=== PATIENT | female | born 1980 | race Caucasian/White ===

== ENCOUNTER 2017-08-24 14:32 | Emergency (ER) | payer SELFPAY ==
[2017-08-24 14:59] LABS: Base Excess-Venous 1.6 mmol/L (0 (+/- 2.5)); Bicarbonate (HCO3v) 26.1 mmol/L (1.0-85.0); CO2 Tension (PvCO2) 39.6 mmHg (41.0-51.0); Hemoglobin - Calc 13.8 g/dL (12.0-18.0); O2 Tension (PvO2) 70.6 mmHg (35.0-45.0); T. Carbon Dioxide 27.3 mmol/L (1.0-85.0); pH (Venous) 7.427 (7.35-7.45); vO2 Saturation-calc 94.4 % (94-98)
[2017-08-24 15:00] LABS: #Eosinphils 0.1 thou/uL (0.0-0.7); #Lymphocytes 1.9 thou/uL (1.20-3.40); #Monocytes 0.5 thou/uL (0.11-0.59); #Neutrophils 5.5 thou/uL (1.40-6.50); %Basophils 0.6 % (0.0-1.0); %Eosinophils 1.1 % (0.0-10.0); %Lymphocytes 23.1 % (21.0-51.0); %Monocytes 6.4 % (0.0-10.0); %Neutrophils 68.8 % (42.0-75.0); Hemoglobin 14.3 g/dL (12.0-16.0); Mean Corpuscular HGB CONC 34.4 g/dL (32.0-36.0); Mean Corpuscular Hemoglobin 30.8 pg (27.0-31.0); Mean Corpuscular Volume 89.6 fL (78.0-98.0); Mean Platelet Volume 8.9 fL (7.4-10.4); Platelet Count 192 thou/uL (130-400); RBC Distribution Width 12.5 % (11.5-14.5); Red Blood Cell (RBC) Count 4.66 mill/uL (4.20-5.40)
[2017-08-24 15:19] LABS: CKMB 2.4 ng/mL (0-6.6); Troponin I Less than 0.010 ng/mL (< 0.028)
[2017-08-24 15:25] LABS: ALT (SGPT) 32 U/L (8-55); AST (SGOT) 24 U/L (5-34); Acetaminophen Less than 6.0 mcg/mL (10.0-30.0); Alcohol Less than 10 mg/dL (Less than 10); Alkaline Phosphatase 100 U/L (40-150); Anion Gap 15 mmol/L (10-20); BUN (Urea Nitrogen) 13 mg/dL (7.0-18.7); Bilirubin, Total 0.2 mg/dL (0.2-1.2); CK (CPK) 150 U/L (29-168); Calc. Creatinine Clearance 0 mL/min (70-130); Carbon Dioxide 24 mmol/L (22-29); Chloride 105 mmol/L (98-107); Estimated GFR-MDRD 82; Globulin 2.8 g/dL (2.4-3.5); Glucose 99 mg/dL (70-105); Potassium 4.1 mmol/L (3.5-5.1); Protein, Total 6.8 g/dL (6.0-8.3); Salicylate Less than 8.0 mg/dL (15.0-30.0); Sodium 140 mmol/L (136-145)
--- NOTE | 2017-08-24 15:29 | CT ---
CT HEAD NONCONTRAST: Date: 08/24/17 INDICATION: Lethargy, emergency exam. FINDINGS: No evidence of intracranial hemorrhage, mass effect, or midline shift. No acute fluid level in parana edmar sinuses. There is mild mucosal thickening. IMPRESSION: No evidence of acute intracranial hemorrhage or mass effect. POS: [facility]
[2017-08-24 15:35] LABS: Bilirubin Negative (Negative); Blood, Urine Negative (Negative); Clarity CLEAR (Clear); Glucose, Urine (Dipstick) Negative (Negative); Leukocyte Negative (Negative); Nitrite Negative (Negative); Protein, Urine (Dipstick) Negative (Neg-Trace); Specific Gravity, Urine 1.009 (1.002-1.036); Urobilinogen 0.2 mg/dL (0.2-1.0); pH, Urine 6.5 (5.0-9.0)
[2017-08-24 15:39] LABS: Amphetamine Not Detected (NotDetected); Barbiturates Screen Not Detected (NotDetected); Benzodiazepine Screen Not Detected (NotDetected); Cocaine Metabolite Screen Not Detected (NotDetected); Medtox Reader # READER 1; Methadone Not Detected (NotDetected); Methamphetamine Not Detected (NotDetected); Opiate Screen Not Detected (NotDetected); Oxycodone Screen Not Detected (NotDetected); Phencyclidine (PCP) Not Detected (NotDetected); THC/Cannabinoid Screen Not Detected (NotDetected); Tricyclic Screen Not Detected (NotDetected)
[2017-08-24 15:40] LABS: Medtox Control Line Valid? VALID (VALID)
[2017-08-24 15:42] LABS: Pregnancy Test - Urine (BHCG) Negative (Negative); Pregu Control Background? CLEAR/WHITE (CLR/WHITE); Pregu Control Bar Appear? YES (CONTROL BAR); Specific Gravity 1.009 (1.002-1.036)
--- NOTE | 2017-08-24 15:42 | RAD ---
PORTABLE CHEST 1 VIEW: Date: 08/24/17 Time: 1525 hours HISTORY: Unresponsive, altered mental status. FINDINGS: The heart size is normal. The lungs are well expanded without focal areas of consolidation, pneumotho rax, or pleural effusions. IMPRESSION: No radiographic evidence of acute cardiopulmonary process. POS: [facility]
[2017-08-24] MEDS ORDERED: diphenhydrAMINE 50 MG/ML VIAL ONE (16:20)
[2017-08-24] MEDS ORDERED: Acetaminophen 500 MG TAB ONE (16:20)
== END 2017-08-24 17:05 | disposition home or self-care (01) ==
LOC: ERS 14:32
DX: R53.83 Other fatigue (principal); R55 Syncope and collapse; I10 Essential (primary) hypertension; J44.9 Chronic obstructive pulmonary disease, unspecified; F31.9 Bipolar disorder, unspecified; F41.9 Anxiety disorder, unspecified; Z87.891 Personal history of nicotine dependence; Z79.899 Other long term (current) drug therapy
CPT/HCPCS: 36416; 70450; 71045; 80053; 80306; 80307; 81003; 81025; 82330; 82550; 82553; 82803; 84484; 85025; 93005; 96361; 96374; J1200

== ENCOUNTER 2017-09-21 10:41 | Emergency (ER) | payer SELFPAY ==
--- NOTE | 2017-09-21 11:38 | RAD ---
3 VIEWS RIGHT ANKLE: Date: 09/21/17 INDICATION: Twisted right ankle while on stairs. FINDINGS: There is widening of the superolateral aspect of the ankle mortise suspicious for ligamentous insuffi ciency. No acute fracture is evident. Enthesopathic change is seen off the calcaneus. IMPRESSION: Widening of the superolateral ankle mortise can be seen with ankle ligament insufficiency. Orthopedic consultation is recommended. No acute fracture is demonstrated. POS: [facility]
== END 2017-09-21 12:50 | disposition home or self-care (01) ==
LOC: ERS 10:41
DX: S93.401A Sprain of unspecified ligament of right ankle, initial encounter (principal); G47.30 Sleep apnea, unspecified; I10 Essential (primary) hypertension; J44.9 Chronic obstructive pulmonary disease, unspecified; F41.9 Anxiety disorder, unspecified; F31.9 Bipolar disorder, unspecified; F43.10 Post-traumatic stress disorder, unspecified; Z87.891 Personal history of nicotine dependence; X50.1XXA Overexertion from prolonged static or awkward postures, initial encounter

== ENCOUNTER 2017-09-26 13:15 | Emergency (ER) | payer SELFPAY ==
[2017-09-26] MEDS ORDERED: Ibuprofen 800 MG TAB ONE (14:35)
--- NOTE | 2017-09-26 15:06 | RAD ---
Three views of the right ankle: Date: 09/26/17. COMPARISON: None. HISTORY: Right ankle pain, injury. Trauma. FINDINGS: The talar dome and ankle mortise appear intact. There is osteophyte formation involving the distal aspect of the right fibula/lateral malleolus. No acute fracture or evidence of dislocation. There is enthesophyte formation at the insertion of the A chilles tendon and origin of the plantar aponeurosis. There is mild dorsal degenerative change invol ving the mid foot. IMPRESSION: Chronic findings. No acute fracture or dislocation. POS: [facility]
== END 2017-09-26 14:38 | disposition home or self-care (01) ==
LOC: ERS 13:15
DX: S93.401A Sprain of unspecified ligament of right ankle, initial encounter (principal); Z71.6 Tobacco abuse counseling; G47.30 Sleep apnea, unspecified; I10 Essential (primary) hypertension; J45.909 Unspecified asthma, uncomplicated; J44.9 Chronic obstructive pulmonary disease, unspecified; F41.9 Anxiety disorder, unspecified; F31.9 Bipolar disorder, unspecified; F43.10 Post-traumatic stress disorder, unspecified; Z87.891 Personal history of nicotine dependence; Z79.899 Other long term (current) drug therapy; X58.XXXA Exposure to other specified factors, initial encounter